=== PATIENT | male | born 1995 | race Caucasian/White ===

== ENCOUNTER 2018-12-05 12:41 | Emergency (ER) | payer OTHER ==
[2018-12-05 13:02] VITALS: BP 136/102
--- NOTE | 2018-12-05 13:19 | UC ---
Throat Pain/Nasal Misha HPI - HPI Summary HPI Summary: nasal congestion , cough x 4 days + sore throat, body aches , no fever, no chills sinus pain and pressure - History of Current Complaint Chief Complaint: UCGeneralIllness Stated Complaint: SINUS BODYACHES CONGESTION Time Seen by Provider: 12/05/18 13:09 Hx Obtained From: Patient Onset/Duration: Gradual Onset, Lasting Days - 4, Still Present Severity: Moderate Pain Intensity: 0 Cough: Nonproductive Associated Signs & Symptoms: Positive: Sinus Discomfort, Nasal Discharge. Negative: Dysphagia, FB Sensation, Drooling, Wheezing, Hoarseness, Fever, Vomiting, Rash - Allergies/Home Medications Allergies/Adverse Reactions: Allergies Allergy/AdvReac Type Severity Reaction Status Date / Time No Known Allergies Allergy Verified 12/05/18 13:02 Home Medications: Home Medications NK [No Home Medications Reported] 12/05/18 [History Confirmed 12/05/18] PMH/Surg Hx/FS Hx/Imm Hx Previously Healthy: Yes - Surgical History Surgical History: None - Family History Known Family History: Negative: Diabetes - Social History Alcohol Use: Occasionally Substance Use Type: None Smoking Status (MU): Never Smoked Tobacco Review of Systems All Other Systems Reviewed And Are Negative: Yes Constitutional: Positive: Negative Skin: Positive: Negative Eyes: Positive: Negative ENT: Positive: Sore Throat, Nasal Discharge, Sinus Congestion, Sinus Pain/ Tenderness Respiratory: Positive: Cough Cardiovascular: Positive: Negative Is Patient Immunocompromised?: No Physical Exam Triage Information Reviewed: Yes Appearance: Well-Appearing, No Pain Distress, Well-Nourished Vital Signs: Initial Vital Signs Temp 98.4 F 12/05/18 12:58 Pulse 95 12/05/18 12:58 Resp 20 12/05/18 12:58 BP 136/102 12/05/18 12:58 Pulse Ox 99 12/05/18 12:58 Vital Signs Reviewed: Yes Eye Exam: Normal Eyes: Positive: Conjunctiva Clear ENT: Positive: Normal ENT inspection, Hearing grossly normal, Pharynx normal Neck: Positive: Supple, Nontender, No Lymphadenopathy Respiratory: Positive: Chest non-tender, Lungs clear, Normal breath sounds Cardiovascular: Positive: RRR, No Murmur, Pulses Normal Abdominal Exam: Normal Abdomen Description: Positive: Nontender, Soft Bowel Sounds: Positive: Present Skin Exam: Normal Throat Pain/Nasal Course/Dx - Differential Dx/Diagnosis Provider Diagnosis: URI (upper respiratory infection) Discharge - Sign-Out/Discharge Documenting (check all that apply): Patient Departure All imaging exams completed and their final reports reviewed: No Studies - Discharge Plan Condition: Stable Disposition: HOME Patient Education Materials: Upper Respiratory Infection (ED) Referrals: No Primary Care Phys,NOPCP [Primary Care Provider] - If Needed - Billing Disposition and Condition Condition: STABLE Disposition: Home
== END 2018-12-05 13:19 | disposition home or self-care (01) ==
LOC: UCCORT 12:41
DX: J06.9 Acute upper respiratory infection, unspecified (principal)
CPT/HCPCS: 99201; G0463

== ENCOUNTER 2019-03-25 07:41 | Emergency (ER) | payer OTHER ==
[2019-03-25 08:01] VITALS: BP 136/78
--- NOTE | 2019-03-25 08:26 | UC ---
Bite Injury/Animal HPI - HPI Summary HPI Summary: Patient is a line in. Patient found a tick on his left side yesterday. Mom removed with tweazer. Patient states he thinks he got it all. Patient states he's not sure when it attached but he believes it may have been Saturday. Patient 's tetanus is less than 10 years. Patient without any other concerns or complaints. Patient is not immunocompromised. Patient's medications reviewed this visit. - History of Current Complaint Chief Complaint: JOHANNYkin Stated Complaint: SKIN LEFT SIDE TICK BITE Time Seen by Provider: 03/25/19 08:10 Hx Obtained From: Patient Severity Currently: None Pain Intensity: 0 - Allergies/Home Medications Allergies/Adverse Reactions: Allergies Allergy/AdvReac Type Severity Reaction Status Date / Time No Known Allergies Allergy Verified 03/25/19 08:00 PMH/Surg Hx/FS Hx/Imm Hx Previously Healthy: Yes - Surgical History Surgical History: None - Family History Known Family History: Positive: Non-Contributory Negative: Diabetes - Social History Occupation: Employed Full-time Lives: With Family Alcohol Use: Occasionally Substance Use Type: None Smoking Status (MU): Never Smoked Tobacco Review of Systems All Other Systems Reviewed And Are Negative: Yes Constitutional: Positive: Negative Skin: Positive: Other - left flank wound Is Patient Immunocompromised?: No Physical Exam - Summary Physical Exam Summary: Vital Signs Reviewed: Yes A+Ox3, no distress Eyes: Conjunctiva Clear ENT: Hearing grossly normal neck: supple Respiratory: Positive: No respiratory distress, No accessory muscle use Cardiovascular: skin color reflect adequate perfusion Musculoskeletal Exam: BAZAN x 4 without difficulty Neurological: Positive: Alert, ambulatory without difficulty Psychological: Positive: Normal Response To Family Skin: Positive: left flank pt with 1cm erythema with central punctate area. no retained part noted Triage Information Reviewed: Yes Vital Signs: Initial Vital Signs Temp 97.9 F 03/25/19 07:58 Pulse 65 03/25/19 07:58 Resp 18 03/25/19 07:58 BP 136/78 03/25/19 07:58 Pulse Ox 97 03/25/19 07:58 Bite Injury Course/Dx - Course Course Of Treatment: Patient removed a tick from his left flank yesterday. Patient states it may have been tapped for approximately 30 hours. Patient did show me a picture the taken looks slightly engorged. Patient's vital signs are stable. Patient's tetanus is up-to-date. Patient with a wound from tick removal no retained first noted under magnification. Discussed with patient wound care. Discussed with patient prophylaxis. We'll give one-time dose. Motrin Tylenol for pain patient given a tick removal instructions. Patient states understanding agreement with plan. Patient declined work out of his going back to work today. - Differential Dx/Diagnosis Provider Diagnosis: Tick bite of flank Discharge - Sign-Out/Discharge Documenting (check all that apply): Patient Departure All imaging exams completed and their final reports reviewed: No Studies - Discharge Plan Condition: Stable Disposition: HOME Patient Education Materials: Tick Bite (ED) Referrals: No Primary Care Phys,NOPCP [Primary Care Provider] - Additional Instructions: Keep area clean and dry Check yourself daily for ticks after you have been working in the [employer] Contact your doctor or return with questions or concerns Approach to prophylaxis : According to the Infectious Diseases Society of [place] (IDSA) guidelines that recommend antibiotic prophylaxis only in patients who meet all of the following criteria: 1. Attached tick identified as an adult or nymphal I. scapularis tick (deer tick). 2. Tick is estimated to have been attached for 36 hours (by degree of engorgement or time of exposure). 3. Prophylaxis is begun within 72 hours of tick removal. Local rate of infection of ticks with B. burgdorferi is 20 percent if attached for over 48 hours (these rates of infection have been shown to occur in parts of [place], parts of the [facility], and [place] If you experience a tick and time of attachment is believed to be less than 36 hours, you may remove the tick with head intact and no need for prophylaxis. If over 36 hours, please come into UC. Prophylactic doxycycline is not recommended for ticks attached less than 36 hours. You were given the prophylaxis at today's visit. - Billing Disposition and Condition Condition: STABLE Disposition: Home
[2019-03-25] MEDS ORDERED: DOXYcycline CAP(*) 100 MG PO ONE (08:31)
== END 2019-03-25 08:39 | disposition home or self-care (01) ==
LOC: UCCORT 07:41
DX: S30.861A Insect bite (nonvenomous) of abdominal wall, initial encounter (principal); W57.XXXA Bitten or stung by nonvenomous insect and other nonvenomous arthropods, initial encounter; Y92.9 Unspecified place or not applicable
CPT/HCPCS: 99212; A9270-GY; G0463